=== PATIENT | male | born 1950 | race Caucasian/White ===

== ENCOUNTER 2020-05-15 12:31 | Emergency (ER) | payer MEDICARE, SELFPAY ==
[2020-05-15 12:35] VITALS: PULSE 107; RESP 18; TEMP 36.9; O2SAT 96; BMI 33.2
--- NOTE | 2020-05-15 13:06 | HMH.EDUTC ---
[facility] Disposition Clinical Impression: Encounter for laboratory testing for COVID-19 virus Sinusitis Qualifiers: Sinusitis location: unspecified location Chronicity: unspecified Qualified Code(s): J32.9 - Chronic sinusitis, unspecified Disposition: Home, Self-Care Condition on Discharge: Good Instructions: Sinusitis, DI for Sinusitis, DI for COVID-19 (Suspected or Confirmed ), Coronavirus Disease 2019, Preventing the Spread of Coronavirus Discharge Instructions Additional Instructions: *Monitor Temp, Over the counter Motrin or Tylenol as directed/as needed Tylenol every 4 hours and Motrin every 6 hours (as long as your family doctor has told you that you can take it) for fever or pain. and straight to ER if unable to lower temp less than 101.0 after medication given *Warm salt water gargles may help to soothe the throat *Throat Lozenges *Warm fluids like tea with honey may help to soothe the throat *Sleep elevated *Humidifier/Vaporizer Follow up IMMEDIATELY for new or worsening symptoms or no Noticeable improvement over the next 48-72 hours. 911 for difficulty breathing or swallowing You were tested for today for COVID19 your test result should be back in the next 24-48 hours, you may call to the [facility] to see if your test results are back in the next 48 hours [phone] [facility] hours are 9am-9pm You was given a handout with instructions for Self Quarantine and Self isolation for while you wait on test results and what to do if they are positive If you are positive the Health Dept will be contacting you also Referrals: Sergo Hill [Primary Care Provider] - As needed Time of Disposition: 13:16 Medical Decision Making - Maco Inquiry Pt receiving controlled substance: No Maco was queried for this patient: No Vital Signs: 05/15/20 12:35 Temperature 98.5 F Temperature Source Oral Pulse Rate [Right Brachial] 107 H Respiratory Rate 18 Blood Pressure Source [Right Arm] Automatic Cuff Blood Pressure Position [Right Arm] Sitting 02 Sat by Pulse Oximetry 96 Oxygen Delivery Method Room Air - Lab Data Lab Results 05/15/20 12:34: Influenza Type A Ag Negative, Influenza Type B Ag Negative Orders (Tests/Meds): ED MEDICATIONS Discontinued Medications Generic Name Dose Route Start Last Admin Trade Name Freq PRN Reason Stop Dose Admin Ceftriaxone Sodium 1 gm 05/15/20 13:22 05/15/20 13:25 Ceftriaxone 1gm Vial IM 05/15/20 13:23 1 gm ONCE ONE Administration Protocol Lidocaine HCl 0 ml 05/15/20 13:22 05/15/20 13:25 Lidocaine 1% 5ml Pf Vial IM 05/15/20 13:23 2.1 ml ONCE ONE Administration ORDERS Category Date Time Status Covid-19 Nasal PCR ([facility]) Routine Lab 05/15/20 13:25 Received Medical Decision Narrative: Patient states that he just took his blood pressure medication prior to arrival [facility] HPI - General Stated complaint: body aches,hot/cold Time Seen by Provider: 05/15/20 13:06 Mode of Arrival: Ambulatory Source of Information: Patient Limitations: No Limitations Description of Symptoms (Recalled from Triage Doc. by RN): PATIENT C/O BODY ACHES, CHILLS/SWEATS SINCE SATURDAY. RECENTLY TRAVELED FROM [place] VIA CAR HEENT Symptoms (Recalled from RN notes): No Resp Symptoms (Recalled from RN notes): No Skin Symptoms (Recalled from RN notes): No MS Symptoms (Recalled from RN notes): Yes Functional Status (Recalled from RN notes): WNL - History of Present Illness Provider Complaint: Patient state that he has been not feeling well since about state taht he has been having body aches, chills, nasal congestion and feeling hot then cold State that he did recently travel and gets a sinus infection about this time every year but he is worried that he may have COVID - Related Data Home Medications Medication Instructions Recorded Confirmed Atorvastatin Calcium [Lipitor 40mg 40 mg PO HS 05/15/20 05/15/20 Tab] Diclofenac Sodium [Diclofenac 75mg 75
[2020-05-15 13:10] LABS: UTC Influenza A Antigen Negative (Negative); UTC Influenza B Antigen Negative (Negative)
[2020-05-15 13:47] VITALS: BP 158/99; PULSE 107; RESP 18; TEMP 36.9; O2SAT 96
--- NOTE | 2020-05-15 20:26 | PC.NURSE ---
PT NOTIFIED OF COVID RESULTS
== END 2020-05-15 13:50 | disposition home or self-care (01) ==
PROVIDERS: Emergency Provider Nurse Practitioner; PCP Family Medicine
DX: U07.1 COVID-19 (principal); J32.9 Chronic sinusitis, unspecified; I10 Essential (primary) hypertension; E78.5 Hyperlipidemia, unspecified; Z79.899 Other long term (current) drug therapy
CPT/HCPCS: 87804; 96372; 99202; G0463; U0003

== ENCOUNTER 2024-07-07 17:37 | Emergency (ER) | payer MEDICARE, SELFPAY ==
[2024-07-07 17:50] VITALS: BP 167/94; PULSE 91; RESP 18; TEMP 36.7; O2SAT 96; BMI 33.9
--- NOTE | 2024-07-07 18:06 | ED_ITS ---
Discharge Plan Disposition Patient Disposition: Home, Self-Care Condition: Good Prescriptions Prescriptions: New hydrocodone-acetaminophen 5-325 mg tablet 1 tab PO Q8H PRN (Reason: pain) Qty: 12 0RF No Action atorvastatin 40 MG tablet 40 mg PO HS metoprolol succinate 100 MG tablet extended release 24 hr 100 mg PO DAILY glimepiride 4 MG tablet 4 mg PO DAILY diclofenac sodium 75 MG tablet,delayed release (DR/EC) 75 mg PO BIDP PRN (Reason: PAIN) hydrochlorothiazide 25 MG tablet 25 mg PO DAILY Referrals Follow up/Referrals: Steven Whatley DO [Staff Physician] - See instructions Provider,Referral, [Primary Care Provider] - See instructions Activity Restrictions/Add. Instructions Additional Instructions/Restrictions: You were evaluated in the emergency department today. 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 Do not drive or operate heavy machinery while taking narcotic pain medication. Use caution, as it can be sedating and addicting. He can also cause constipation, so you may want to take stool softeners early if you are having any issues having a bowel movement. Try to get by with just Tylenol and ibuprofen every 4-6 hours as needed for pain. Use caution when taking Tylenol with [place], as it contains acetaminophen. You may also machine operator hop picker body-[id number] lidocaine patches and apply to your arm if it helps with your pain. Follow-up closely with Dr. Whatley with orthopedics. You will need to contact his office to schedule an appointment. Return to the emergency department for new or worsening symptoms. Clinical Impressions Clinical Impression: Fracture of proximal end of humerus, Abrasion of face Stand Alone Forms Stand Alone Forms: Work/School Release Instructions Patient Instructions: DI for Humeral Fracture Print Language Print Language: Vietnamese Discharge ED Provider: Alize Cordero General Adult HPI General Chief complaint: Extremity Injury, Upper Stated complaint: AO 3-18 tree fell on right arm Time Seen by Provider: 07/07/24 17:43 Mode of Arrival: Ambulatory Source of Information: Patient and Spouse Description of Symptoms (Recalled from ER Triage Doc. by RN): Pt. presents to the ED with complaints of right shoulder, elbow, and forearm pain after moving a tree and it landing on his arm. He is unable to move his right arm without extreme pain. He also has a scratch on his right cheek. History of Present Illness HPI narrative: This patient is a 74-year-old male who has a history of hypertension and hyperlipidemia presenting to the emergency department for evaluation with concern for right shoulder pain. Patient states that he was moving a tree, and it fell, hitting him in the arm. He states that he cannot move his right arm secondary to severe pain. He scraped his face on the tree, but did not hit him in the head or anything like that. He did not lose consciousness. He denies any numbness, tingling, or other concerns. No chest pain, abdominal pain, back pain, neck pain, or other issue. He only has pain of the right upper extremity. He was well prior to this. He is unsure when his last tetanus shot was. Related Data Home Medications ?Medication ?Instructions ?Recorded ?Confirmed atorvastatin 40 mg tablet 40 mg PO HS Cholesterol 05/15/20 05/15/20 diclofenac sodium 75 mg 75 mg PO BIDP PRN PAIN 05/15/20 05/15/20 tablet,delayed release glimepiride 4 mg tablet 4 mg PO DAILY Hypertension 05/15/20 05/15/20 hydrochlorothiazide 25 mg tablet 25 mg PO DAILY Hypertension 05/15/20 05/15/20 metoprolol succinate 100 mg 100 mg PO DAILY Hypertension 05/15/20 05/15/20 tablet,extended release 24 hr Previous Rx's ?Medication ?Instructions ?Recorded hydrocodone 5 mg-acetaminophen 325 1 tab PO Q8H PRN pain #12 tabs 25 mg tablet Allergies Allergy/AdvReac Type Severity Reaction Status Date / Time No Known Allergies Allergy Verified 05/15/20 13:03 [facility] Disclaimer: The information contained in this section may have been updated after the patient was seen, as this information can be updated by other users. Social History Smoking Status: Never smoker alcohol intake: never current occupational status: other Travel in the last 8 weeks: None Have you lived/traveled outside [place] in past 30 days?: No Contact w/someone who lives/traveled outside US past 30 days?: No Exposure to someone with infectious disease in past 14 days?: No Do you have a fever (greater than 100.4 F or 38 C)?: No Have you tested positive for COVID-19: No Exposed to someone with COVID-19 in past 14 days?: No Do you have a sore throat?: No Do you have a cough?: No Do you have any weakness?: No Do you have any diarrhea?: No Are you experiencing any unusual bleeding?: No Do you have any muscle aches/pain?: No Do you have any abdominal pain?: No Are you experiencing loss of taste or smell?: No ROS Obtained: Yes All systems reviewed & no additional complaints except as documented Physical Exam General General appearance: alert and in no apparent distress Head Head exam: atraumatic, normocephalic and other (Superficial abrasion to the right face) Eye Eye exam: Present normal appearance, PERRL and EOMI ENT ENT exam: Present normal exam, normal oropharynx, mucous membranes moist and normal external ear exam Neck Neck exam: Present normal inspection, full ROM and trachea midline; Absent tenderness Chest Chest inspection: Present normal inspection and symmetric chest wall rise; Absent tenderness Respiratory Respiratory exam: Present normal lung sounds bilaterally; Absent respiratory distress, wheezes, stridor or accessory muscle use Cardiovascular Cardiovascular exam: Present regular rate and normal rhythm Abdominal Exam Abdominal exam: Present soft; Absent distention, tenderness or guarding Extremities Exam Extremities exam: Present tenderness (Right shoulder/humerus), normal capillary refill and other (All compartments soft, neurovascularly intact distally); Absent full ROM (Limited range of motion secondary to pain) or edema Back Exam Back exam: Present normal inspection and full ROM; Absent tenderness Neurological Exam Neurological exam: Present alert, oriented X3, CN II-XII intact and normal gait; Absent motor sensory deficit Psychiatric Psychiatric exam: Present normal affect and normal mood Skin Skin exam: Present warm and dry Medical Decision Making Medical Records Medical records reviewed: Yes I reviewed the patient's medical records. Screening: Per USPSTF and CDC recommendations, given the prevalence of disease in our region, it is our hospital?s policy to screen for HIV and viral Hepatitis for all patients aged 18 and over and those with ongoing risk factors. Maco Inquiry Pt receiving controlled substance: Yes Maco was queried for this patient: Yes Risks and benefits of using a controlled substance: were discussed with pt by me Vital Signs: 07/07/24 17:50 07/07/24 18:20 07/07/24 19:30 Temperature 98.1 F Temperature Source Oral Pulse Rate 94 H 72 Pulse Rate [Left Brachial] 91 H Respiratory Rate 18 Blood Pressure 157/88 H 157/89 H Blood Pressure [Left Arm] 167/94 H Blood Pressure Mean [Left Arm] 118 Blood Pressure Source [Left Arm] Automatic Cuff Blood Pressure Position Blood Pressure Position [Left Arm] Sitting 02 Sat by Pulse Oximetry 96 96 95 Oxygen Delivery Method Room Air Room Air 07/07/24 20:00 07/07/24 20:27 07/07/24 21:33 Temperature 98 F Temperature Source Pulse Rate 71 86 78 Pulse Rate [Left Brachial] Respiratory Rate 14 Blood Pressure 175/93 H 174/93 H 124/68 Blood Pressure [Left Arm] Blood Pressure Mean [Left Arm] Blood Pressure Source [Left Arm] Blood Pressure Position Sitting Blood Pressure Position [Left Arm] 02 Sat by Pulse Oximetry 96 97 Oxygen Delivery Method Room Air Lab Data Lab results reviewed: Yes I reviewed the patient's lab results. Orders (Tests/Meds): ED MEDICATIONS Discontinued Medications Generic Name Dose Route Start Last Admin Trade Name Freq PRN Reason Stop Dose Admin Acetaminophen 1,000 mg 07/07/24 18:03 07/07/24 18:12 Acetaminophen 500mg Tab PO 07/07/24 18:04 1,000 mg ONCE ONE Administration Bacitracin 1 each 07/07/24 18:03 07/07/24 18:13 Bacitracin Oint 0.9gm Udp TP 07/07/24 18:04 1 each ONCE ONE Administration Ketorolac Tromethamine 30 mg 07/07/24 18:03 07/07/24 18:13 Ketorolac 30mg/Ml Vial IM 07/07/24 18:04 30 mg ONCE ONE Administration Lidocaine 1 each 07/07/24 20:24 07/07/24 20:26 Lidocaine 5% Transdermal Patch TP 07/07/24 20:25 1 each ONCE ONE Administration Morphine Sulfate 4 mg 07/07/24 18:03 07/07/24 18:13 Morphine 4mg/Ml Syringe IM 07/07/24 18:04 4 mg ONCE ONE Administration Oxycodone HCl 5 mg 07/07/24 20:19 07/07/24 20:26 Oxycodone 5mg Immediate Release Tablet PO 07/07/24 20:20 5 mg ONCE ONE Administration Tetanus/Reduced Diphtheria/Acell Pertussis 0.5 ml 07/07/24 18:03 07/07/24 18:18 Tet/Diphth/Pert-Adult 0.5ml Syringe IM 07/07/24 18:04 0.5 ml .ONCE ONE Administration ORDERS Category Date Time Status CT humerus RT wo con Stat Cat Scan 07/07/24 20:19 Completed Elbow XR right 2 views [XR elbow RT 2V] Stat Exams 07/07/24 18:15 Completed Forearm XR right 2 views [XR forearm RT 2V] Stat Exams 07/07/24 18:15 Completed Humerus XR right [XR humerus RT] Stat Exams 07/07/24 18:15 Completed Shoulder XR right miminum 2 views [XR shoulder RT min Exams 07/07/24 18:15 Completed 2V] Stat Medical Decision Narrative: In summary, this patient is a 74-year-old male presenting to the Emergency Department for evaluation of right shoulder/upper extremity pain after a tree hit him in the arm. He also has an abrasion to his face from the tree, but he denies it hitting him in the head.. Differential diagnoses considered include but are not limited to fracture, contusion, strain/sprain, neurovascular injury. Ruling out the most morbid conditions drove assessment. It should be noted patient's history includes hypertension and hyperlipidemia which may or may not be at goal therapy. This complicates all aspects of care by increasing patient's risk for morbidity. On exam, the patient is sitting upright in no acute distress. He has tenderness palpation of his right shoulder/proximal humerus with limited range of motion secondary to pain, but he is neurovascularly intact distally. He has an abrasion to his face from the tree scraping him, but he did not hit him in the head. No other concerns or complaints noted. Workup included x-rays of the right shoulder, humerus, elbow, forearm. Patient was given oral Tylenol, IM Toradol, IM morphine for symptomatic improvement of pain and was given Tdap booster and topical bacitracin given his wound. I independently interpreted x- ray prior to the radiologist read and noted comminuted impacted proximal humerus fracture. Please see their read for final interpretation. We unfortunately do not have a cuff and collar here, so I placed the patient in a sling for immobilization. I had an interactive discussion with Dr. Whatley with orthopedics who recommended obtaining CT scan of the humerus prior to discharge. This was obtained and demonstrates the comminuted fracture as well as a well- corticated lesion in the right elbow. He has no significant elbow tenderness, so I do not feel this is acute and require splinting. Patient was given oral oxycodone for continued pain relief. He remained neurovascularly intact. Given this, I feel that he is appropriate for discharge home with close follow-up with orthopedics. He was given prescription for [place]. Strict return precautions were given Critical Care Critical Care Time Critical Care Time: No
[2024-07-07] MEDS: ACETAMINOPHEN 500MG TAB 1000 MG PO (18:12)
[2024-07-07] MEDS: BACITRACIN OINT 0.9GM UDP 1 EACH TP (18:13)
[2024-07-07] MEDS: MORPHINE 4MG/ML SYRINGE 4 MG IM (18:13)
[2024-07-07] MEDS: KETOROLAC 30MG/ML VIAL 30 MG IM (18:13)
--- NOTE | 2024-07-07 18:15 | XR_ITS ---
PROCEDURE INFORMATION: Exam: XR Right Forearm Exam date and time: 07/07/2024 6:59 PM Age: 74 years old Clinical indication: Injury or trauma; Other: Tree hit R arm; Other: Pain; Additional info: Pain, tree hit arm TECHNIQUE: Imaging protocol: Radiologic exam of the right forearm. Views: 2 views. COMPARISON: CR XR ELBOW RT 2V 07/07/2024 6:59 PM FINDINGS: Bones/joints: Normal. Soft tissues: Normal. IMPRESSION: No acute findings.
--- NOTE | 2024-07-07 18:15 | XR_ITS ---
PROCEDURE INFORMATION: Exam: XR Right Humerus Exam date and time: 07/07/2024 6:48 PM Age: 74 years old Clinical indication: Injury or trauma; Other: Tree hit R arm; Other: Pain; Additional info: Pain, tree hit arm TECHNIQUE: Imaging protocol: Radiologic exam of the right humerus. Views: 2 or more views. COMPARISON: CR XR SHOULDER RT MIN 2V 07/07/2024 6:43 PM FINDINGS: Bones/joints: Moderately comminuted fracture of the proximal right humeral metaphysis with butterfly fragment measuring 3.2 cm in diameter. Moderate osteophytosis and degenerative changes involve the right AC joint. Soft tissues: Normal. IMPRESSION: Moderately comminuted fracture of the proximal right humeral metaphysis with butterfly fragment measuring 3.2 cm in diameter.
--- NOTE | 2024-07-07 18:15 | XR_ITS ---
PROCEDURE INFORMATION: Exam: XR Right Shoulder Exam date and time: 07/07/2024 6:43 PM Age: 74 years old Clinical indication: Injury or trauma; Other: Tree hit R arm; Other: Pain; Additional info: Pain, tree hit arm TECHNIQUE: Imaging protocol: Radiologic exam of the right shoulder. Views: 2 or more views. COMPARISON: No relevant prior studies available. FINDINGS: Bones/joints: Moderately comminuted fracture of the proximal right humeral metaphysis with butterfly fragment measuring 3.2 cm in diameter. Moderate osteophytosis and degenerative changes involve the right AC joint. Soft tissues: Normal. IMPRESSION: Moderately comminuted fracture of the proximal right humeral metaphysis with butterfly fragment measuring 3.2 cm in diameter.
--- NOTE | 2024-07-07 18:15 | XR_ITS ---
PROCEDURE INFORMATION: Exam: XR Right Elbow Exam date and time: 07/07/2024 6:59 PM Age: 74 years old Clinical indication: Injury or trauma; Other: Tree hit R arm; Other: Pain; Additional info: Pain, tree hit arm TECHNIQUE: Imaging protocol: Radiologic exam of the right elbow. Views: 1 or 2 views. COMPARISON: CR XR HUMERUS RT 07/07/2024 6:48 PM FINDINGS: Bones/joints: Calcific density measuring 7.2 mm adjacent to the right trochlea may represent minimally displaced avulsion fracture versus sequela of prior soft tissue injury. Soft tissues: See Bones/joints finding. IMPRESSION: Calcific density measuring 7.2 mm adjacent to the right trochlea may represent minimally displaced avulsion fracture versus sequela of prior soft tissue injury.
[2024-07-07] MEDS: TET/DIPHTH/PERT-ADULT 0.5ML SYRINGE 0.5 ML IM (18:18)
[2024-07-07 18:20] VITALS: BP 157/88; PULSE 94; O2SAT 96
[2024-07-07 19:30] VITALS: BP 157/89; PULSE 72; O2SAT 95
[2024-07-07 20:00] VITALS: BP 175/93; PULSE 71; O2SAT 96
--- NOTE | 2024-07-07 20:19 | CT_ITS ---
PROCEDURE INFORMATION: Exam: CT Right Upper Extremity Without Contrast, Upper Arm Exam date and time: 07/07/2024 8:41 PM Age: 74 years old Clinical indication: Pain; Upper arm; Right; Additional info: Further eval FX, pain TECHNIQUE: Imaging protocol: Computed tomography of the right upper extremity without contrast. Exam focused on the upper arm. Radiation optimization: All CT scans at this facility use at least one of these dose optimization techniques: automated exposure control; mA and/or kV adjustment per patient size (includes targeted exams where dose is matched to clinical indication); or iterative reconstruction. COMPARISON: CR XR ELBOW RT 2V 07/07/2024 6:59 PM FINDINGS: Bones/joints: Moderate comminuted fracture of the proximal right humeral head with impaction of the metaphysis. Well-corticated ovoid calcific density measuring 9.6 mm adjacent to the trochlea favors sequela of prior traumatic injury over acute fracture. Soft tissues: Normal. IMPRESSION: 1. Moderate comminuted fracture of the proximal right humeral head with impaction of the metaphysis. 2. Well-corticated ovoid calcific density measuring 9.6 mm adjacent to the trochlea favors sequela of prior traumatic injury over acute fracture.
[2024-07-07] MEDS: LIDOCAINE 5% TRANSDERMAL PATCH 1 EACH TP (20:26)
[2024-07-07] MEDS: OXYCODONE 5MG IMMEDIATE RELEASE TABLET 5 MG PO (20:26)
[2024-07-07 20:27] VITALS: BP 174/93; PULSE 86; O2SAT 97
[2024-07-07 21:33] VITALS: BP 124/68; PULSE 78; RESP 14; TEMP 36.6; O2SAT 100
== END 2024-07-07 21:34 | disposition home or self-care (01) ==
PROVIDERS: Emergency Provider Emergency Medicine
DX: S42.201A Unspecified fracture of upper end of right humerus, initial encounter for closed fracture (principal); S00.81XA Abrasion of other part of head, initial encounter; M25.511 Pain in right shoulder; M25.521 Pain in right elbow; M79.601 Pain in right arm; W22.8XXA Striking against or struck by other objects, initial encounter; Y93.89 Activity, other specified; Y92.89 Other specified places as the place of occurrence of the external cause; Z23 Encounter for immunization
CPT/HCPCS: 73030; 73060; 73070; 73090; 73200; 90471; 90715; 96372; 99284; J1885; J2270

== ENCOUNTER 2024-07-15 10:24 | Outpatient (CLI) | payer MEDICARE, SELFPAY ==
--- NOTE | 2024-07-15 10:27 | XR_ITS ---
FINAL REPORT CLINICAL HISTORY: Rt Shoulder pain..fall last week..f/u FINDINGS: 2 views of the right shoulder were obtained. There is very little change in positioning of the humeral head between the internal and external rotation views. The fracture of the humeral head and neck is not significantly displaced. There is no dislocation. IMPRESSION: Limited exam. Fracture of the humeral head and neck Reviewed, Interpreted and Dictated by Fara Caldera MD Transcribed by Monik Bass Authenticated and [facility]
== END 2024-07-15 23:59 | disposition home or self-care (01) ==
LOC: RAD 10:25
PROVIDERS: PCP Family Medicine; Visit Provider Physician Assistant
DX: M25.511 Pain in right shoulder (principal)
CPT/HCPCS: 73030

== ENCOUNTER 2024-08-05 10:35 | Outpatient (CLI) | payer MEDICARE, SELFPAY ==
--- NOTE | 2024-08-05 10:37 | XR_ITS ---
FINAL REPORT CLINICAL HISTORY: Rt Shoulder pain COMPARISON: 07/15/2024 FINDINGS: 2 views of the right shoulder were obtained. There is a chronic appearing humeral head fracture. There is no acute fracture or dislocation. There is degenerative joint disease. Soft tissues are unremarkable. IMPRESSION: Degenerative joint disease without acute osseous abnormality of the right shoulder. Chronic appearing humeral head fracture. Reviewed, Interpreted and Dictated by Fara Caldera MD Transcribed by Aleena Wiley Authenticated and [facility]
== END 2024-08-05 23:59 | disposition home or self-care (01) ==
LOC: RAD 10:35
PROVIDERS: PCP Family Medicine; Visit Provider Physician Assistant
DX: M25.511 Pain in right shoulder (principal); S42.201A Unspecified fracture of upper end of right humerus, initial encounter for closed fracture
CPT/HCPCS: 73030

== ENCOUNTER 2024-09-21 14:52 | Outpatient (CLI) | payer MEDICARE, SELFPAY ==
--- NOTE | 2024-09-21 14:55 | XR_ITS ---
FINAL REPORT CLINICAL HISTORY: fracture..pain COMPARISON: 08/05/2024 FINDINGS: RIGHT SHOULDER Three views demonstrate no acute fracture or dislocation. There has been no significant change in fracture of the humeral neck. The visualized joint spaces are normally aligned. Degenerative joint disease is noted. The soft tissues are unremarkable. IMPRESSION: No significant change in humeral neck fracture. No acute osseous abnormality. Reviewed, Interpreted and Dictated by Fara Caldera MD Transcribed by Judy Baeza Authenticated and . [facility]
== END 2024-09-21 23:59 | disposition home or self-care (01) ==
LOC: RAD 14:53
PROVIDERS: PCP Family Medicine; Visit Provider Physician Assistant
DX: S42.211A Unspecified displaced fracture of surgical neck of right humerus, initial encounter for closed fracture (principal)
CPT/HCPCS: 73030